=== PATIENT | male | born 1960 | race Caucasian/White ===

== ENCOUNTER → 2018-06-18 08:18 | Outpatient (CLI) | payer OTHER, SELFPAY ==
--- NOTE | 2018-06-18 | DI.ECHO.S_ITS ---
[place] [facility]---------+ [facility] +---------+ : : [address] : [address] : : : : [id number] : : : : Phone: [phone]---------+ Echocardiogram Report + + :Name: MICHELE OSWALD Study Date: 06/18/2018 Height: 81 in : :[facility] Weight: 205 lb : : Gender: Male BSA: 2.3 m2 : :: 1960 Age: 58 yrs BP: 100/70 mmHg: :Reason For Study: CAD : : Performed By: Em Pollock : :Referring: BRUCE MACIAS : + + Interpretation Summary 1) Normal left ventricular thickness and size with mildly reduced systolic function (EF 45-50%). 2) Mild hypokinesis of the mid to distal anterior wall with severe hypokinesis of the apical anterior wall and apex. 3) Grossly, normal right ventricular size and function. 4) No significant valvular abnormalities. 5) Compared to the Echo done 04/08/2018, LVEF has increased from 30-35% to 45- 50% on this study. Procedure: A two-dimensional transthoracic echocardiogram with color flow and Doppler was performed. The study quality was technically adequate. Comparison is made with the echocardiogram of 04-08-18. The patient was in normal sinus rhythm during the exam. Left Ventricle: The left ventricle is normal in size. There is normal left ventricular wall thickness. The ejection fraction is estimated to be 45-50%. Left ventricular systolic function is mildly reduced. Mild hypokinesis of the mid to distal anterior wall with severe hypokinesis of the apical anterior wall and apex. Diastolic parameters suggest probable normal left ventricular diastolic function and normal filling pressures. Right Ventricle: The right ventricle grossly appears normal in size with probable normal systolic function. Atria: The left atrial size is normal. Right atrial size is normal. The interatrial septum is intact with no evidence for an atrial septal defect. Mitral Valve: The mitral valve is grossly normal. There is mild mitral regurgitation. Aortic Valve: The aortic valve is trileaflet. The aortic valve opens well. No aortic regurgitation is present. Tricuspid Valve: The tricuspid valve is normal in structure and function. There is a trace or physiologic amount of tricuspid regurgitation. The right ventricular systolic pressure is estimated to be at least 25 mmHg based on an estimated right atrial pressure of 3 mm Hg. Pulmonic Valve: The pulmonic valve is normal in structure and function. There is trace pulmonic regurgitation. Great Vessels: The aortic root is normal size. The ascending aorta is at the upper limits of normal in size. The IVC is of normal diameter and collapses greater than 50% with a sniff. This suggests a low right atrial pressure of 3 mm Hg. Pericardium/ Pleura There is no pericardial effusion. There is no pleural effusion. MMode/2D Measurements & Calculations LVIDd: 5.1 cm Ao root diam: 3.7 cm LVIDs: 3.8 cm Aortic Jxn: 3.0 cm FS: 25.8 % asc Aorta Diam: 3.7 cm EPSS: 0.63 cm Ao Arch Diam (Prox Trans): 3.3 cm IVSd: 0.98 cm LVPWd: 0.66 cm LV negro. diameter/BSA (cm/m^2): 2.2 LV sys. diameter/BSA (cm/m^2): 1.6 LA dimension: 3.4 cm RA long axis: 5.0 cm LA A2 area: 22.4 cm2 RA area: 20.4 cm2 LA A4 area: 19.8 cm2 RA vol: 70.9 ml LA length (vol): 5.2 cm RA : 30.2 ml/m2 LA vol: 72.0 ml IVC diam: 1.8 cm LA vol index: 30.7 ml/m2 RVD1 (basal): 5.1 cm RVD2 (mid): 4.0 cm Doppler Measurements & Calculations Ao V2 max: 114.1 cm/sec MV E max steve: 71.4 cm/sec Ao V2 mean: 72.3 cm/sec MV A max steve: 55.6 cm/sec Ao max P.2 mmHg MV E/A: 1.3 Ao mean P.5 mmHg Med Peak E' Steve: 6.7 cm/sec Ao V2 VTI: 22.1 cm E/E' med: 10.6 Lat Peak E' Steve: 8.2 cm/sec E/E' lat: 8.7 E/e' average: 9.6 MV dec time: 0.31 sec MV P1/2t: 90.8 msec TR max steve: 233.0 cm/sec MV P1/2t max steve: 71.9 cm/sec TR max P.7 mmHg MVA(P1/2t): 2.4 cm2 PA V2 max: 68.8 cm/sec PA V2 mean: 44.7 cm/sec PA mean P.96 mmHg PA Accel Time: 0.16 sec Reading Physician:10:20 AM
== END ==
PROVIDERS: Visit Provider Internal Medicine Cardiovascular Disease
DX: I34.0 Nonrheumatic mitral (valve) insufficiency (principal); I25.10 Atherosclerotic heart disease of native coronary artery without angina pectoris; I25.2 Old myocardial infarction
CPT/HCPCS: 93306

== ENCOUNTER → 2023-12-26 09:43 | Outpatient (CLI) | payer OTHER, SELFPAY ==
--- NOTE | 2023-12-26 20:18 | DI.NM.S_ITS ---
DATE OF SERVICE: 12/26/2023 PROCEDURE: Exercise treadmill stress and rest myocardial perfusion imaging with gating to assess ejection fraction and regional wall motion. ORDERING PROVIDER: Dr. Barry Macias. 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 EXERCISE TREADMILL TESTING: The patient was able to exercise for 10 minutes on a standard Brice protocol suggesting very good exercise capacity with an ISACC of -22%, achieving 12.8 METs. He had a normal heart rate and blood pressure response to exercise, achieving a maximum heart rate of 179 BPM (113% of his predicted maximum), although this may be an overestimate because of artifact. He had no chest discomfort or other anginal symptoms. His resting ECG shows sinus rhythm with anteroseptal Q-waves but normal ST segments. With stress, there are no significant ST-segment shifts or arrhythmias. At 8 minutes of exercise at a heart rate of 147 BPM, 26.0 mCi of technetium-99m Myoview was injected and he was imaged 10 minutes later using a gated SPECT acquisition protocol. Earlier in the day while at rest, he had been injected with 12.0 mCi of technetium-99m Myoview and was imaged 15 minutes later, again using a gated SPECT acquisition protocol. FINDINGS: 1. Raw data: There is fairly good myocardial tracer uptake. The lung/heart ratio is normal at 0.34 with a normal TID ratio of 0.82. 2. Quantitative gated SPECT: Post-stress ejection fraction is estimated at 57% with yfhfzuws-ex-nzsjkb hypokinesis in the kjj-tr-cuwzal anterior wall and anteroapex. There are no other wall motion abnormalities. The resting ejection fraction is 55% with a slightly increased end-diastolic volume of 132 mL. 3. Myocardial perfusion imaging: Post-stress supine images show a mild perfusion defect in the inferior wall that completely resolves on prone imaging consistent with diaphragmatic attenuation. In addition, there is a rqkkgaqt-ej-tprmkh perfusion defect in the mkk-gs-scnjbp anterior wall, anterior septum and anteroapex. On the prone images, the distal anterior defect and anteroapex defects persist, but with improvement of the other segments. The resting images show a very similar perfusion pattern to the post-stress supine images, although with very slight improvement at the perimeter of the anterior perfusion defect. IMPRESSION: 1. Abnormal myocardial perfusion study. 2. Moderate-sized, predominantly fixed but slightly reversible onk-rf-vgjsme anterior and anteroapical perfusion defect consistent with previous anterior infarction with very slight chastity-infarct ischemia. 3. Preserved left ventricular systolic function with cbt-bc-bjudgf anterior and apical hypokinesis with mildly increased left ventricular volumes. 4. Very good exercise capacity without angina or ECG evidence of ischemia. Marcin Campos - CHRIS/roderick/JOSEPHINE doc#: [id number]/job#: [id number] dd: 12/26/2023 16:18:00 dt: 12/26/2023 19:09:00 DICTATING MD/COPIES TO: Jayesh Singer MD; Dr. Barry Macias COPIES MNE: NAGI; ; Dr. Barry Macias
== END ==
PROVIDERS: PCP Nurse Practitioner Family; Referring Provider Internal Medicine Cardiovascular Disease; Visit Provider Internal Medicine Cardiovascular Disease
DX: I25.10 Atherosclerotic heart disease of native coronary artery without angina pectoris (principal); R07.89 Other chest pain; I25.2 Old myocardial infarction; R94.39 Abnormal result of other cardiovascular function study; Z95.5 Presence of coronary angioplasty implant and graft
CPT/HCPCS: 78452; 93017; A9502